=== PATIENT | female | born 1955 | race Caucasian/White ===

== ENCOUNTER 2019-02-23 11:55 | Emergency (ER) | payer OTHER ==
[~2019-02-23] VITALS: Ht 147.3 cm; Wt 76.7 kg
[2019-02-23 11:56] VITALS: Ht 147.3 cm; Wt 76.7 kg
[2019-02-23 18:52] VITALS: BP 146/97
== END 2019-02-23 18:52 | disposition home or self-care (01) ==
LOC: ED 11:55
DX: A60.00 Herpesviral infection of urogenital system, unspecified (principal)
CPT/HCPCS: 82962; 87491; 87591; J1885; J2270